=== PATIENT | male | born 1955 | race Caucasian/White ===

== ENCOUNTER 2019-03-20 22:26 | Inpatient (IN) | payer MEDICAID ==
[~2019-03-20] VITALS: Ht 165.1 cm; Wt 62.6 kg
[2019-03-20 22:26] VITALS: BP 75/48
--- NOTE | 2019-03-20 22:26 | NUR ---
PT MARIA D ALS TO ER BED 11
--- NOTE | 2019-03-20 22:35 | NUR ---
Kayden mohamud in [place] - 03/21/19 at 0401 by MEDJJ STRAIGHT CATHETER PLACED, 0 URINE RETURNED, AND DOCTOR MARILIN NOTIFIED.
[2019-03-20] MEDS ORDERED: NACL 0.9% 1,000 ML IV SCH (22:36)
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
--- NOTE | 2019-03-20 23:30 | NUR ---
MULTIPLE ATTEMPTS MADE TO PUT IV INTO PATIENT. PATIENT STATES HE DOES NOT WANT TO BE POKED BY NEEDLES ANYMORE AND TO STOP.
--- NOTE | 2019-03-20 23:35 | NUR ---
STRAIGHT CATHETER PLACED, 0 URINE RETURNED, AND DOCTOR MARILIN NOTIFIED. TAPED IN PLACE TO AWAIT URINE RETURN
--- NOTE | 2019-03-20 23:40 | NUR ---
CHARGE NURSE NOTIFIED OF DIFFICULT STICK, EJ ATTEMPT BY CHARGE NURSE AND RESOURCE NURSE AND WAS UNSUCCESSFUL. DOCTOR GASTON MADE AWARE
--- NOTE | 2019-03-20 23:47 | NUR ---
XRAY AT BEDSIDE
[2019-03-21] VITALS (10 sets, daily range): BP systolic 91–138; BP diastolic 51–69
--- NOTE | 2019-03-21 | NUR ---
PATIENT ARTERIAL BLOOD DRAWN BY DOCTOR GASTON AT FEMORAL SITE. PRESSURE APPLIED TO SITE AND BLEEDING CONTROLLED WITH BANDAID ON TOP.
--- NOTE | 2019-03-21 00:05 | NUR ---
CATHETER FELL OUT OF PATIENT WITH NO URINE RETURN, DR GASTON MADE AWARE AND STATED THAT NO CATHETER PLACEMENT WAS NECESSARY
--- NOTE | 2019-03-21 00:10 | NUR ---
PATIENT DRANK 480ML OF WATER
--- NOTE | 2019-03-21 00:17 | NUR ---
PT WOUND CLEANED FROM ARTERIAL BLOOD DRAW, PRESSURE APPLYED, BANDAID DRESSING APPLYED ON LEFT GROIN
--- NOTE | 2019-03-21 00:30 | NUR ---
NOTIFIED BY LAB TO REDRAW PURPLE AND GREEN DOCTOR MARILIN COHEN AWARE Addendum: 03/21/19 at 0358 by [email or web address] VALLE, NOT GREEN.
--- NOTE | 2019-03-21 00:35 | NUR ---
BED MCKEE PROVIDED FOR BOWEL MOVEMENT. LOOSE, BLACK COFFEE GROUND STOOL COLLECTED AND APPLIED TO HEMOCULT SLIDE. SENT TO LAB FOR PROCESSING.
--- NOTE | 2019-03-21 00:38 | NUR ---
PATIENT DRANK 720 ML OF WATER
--- NOTE | 2019-03-21 00:45 | NUR ---
PATIENT THREW UP AT BEDSIDE
[2019-03-21 00:50] LABS: ALBUMIN 2.9 g/dL (3.4-5.0); CARBON DIOXIDE 17.9 mmol/L (21-32); CREATININE 1.6 mg/dL (0.7-1.3); TOTAL BILIRUBIN 0.4 mg/dL (0.0-1.0)
[2019-03-21 01:00] LABS: POTASSIUM 2.9 mmol/L (3.5-5.1)
[2019-03-21] MEDS ORDERED: ONDANSETRON 4 MG TAB PO ONE (01:15)
[2019-03-21] MEDS ORDERED: POTASSIUM CHLORIDE 10 MEQ TABER PO ONE (01:15)
--- NOTE | 2019-03-21 01:15 | NUR ---
PT TAKEN TO CT SCAN VIA [facility]
--- NOTE | 2019-03-21 01:30 | NUR ---
PATIENT RETURNED FROM XRAY, PATIENT WAS CLEANED AND NEW GOWN PLACED. PATIENT AOX3 TO NAME, , LOCATION. PATIENT IS ALERT AND AWAKE, PATIENT BREATHING EVEN AND UNLABORED, SKIN WARM AND DRY. WILL COTINUE TO MONITOR.
--- NOTE | 2019-03-21 01:55 | NUR ---
BED MCKEE PROVIDED FOR BOWEL MOVEMENT.
--- NOTE | 2019-03-21 02:25 | NUR ---
DOCTOR GASTON AT BEDSIDE PERFORMING CENTRAL LINE PLACEMENT VIA RIGHT SUBCLAVIAN.
--- NOTE | 2019-03-21 02:38 | NUR ---
PROCEDURE COMPLETED BY DOCTOR GASTON, PATIENT TOLERATED WELL.
[2019-03-21] MEDS ORDERED: ASPIRIN 81 MG TAB.CHEW PO ONE (02:55)
[2019-03-21] MEDS ORDERED: NACL 0.9% 1,000 ML IV ONE (03:15)
[2019-03-21] MEDS ORDERED: KETOROLAC 30 MG/ML VIAL IVP ONE (03:15)
[2019-03-21 03:18] LABS: HEMOGLOBIN 7.3 g/dL (12.0-18.0); LYMPHOCYTES # (AUTO) 0.7 K/uL (2.0-11.5)
[2019-03-21] MEDS ORDERED: ZOLPIDEM 5 MG TAB PO PRN (03:25)
[2019-03-21] MEDS ORDERED: ONDANSETRON 4 MG/2 ML VIAL IM/IVP PRN (03:25)
[2019-03-21] MEDS ORDERED: ACETAMINOPHEN 325 MG TAB PO PRN (03:25)
[2019-03-21] MEDS ORDERED: MORPHINE SULFATE 2 MG/ML SYR IVP PRN (03:25)
[2019-03-21] MEDS ORDERED: LORazepam 2 MG/ML VIAL IM/IVP PRN (03:25)
[2019-03-21] MEDS ORDERED: DOCUSATE SODIUM 100 MG GELCAP PO PRN (03:25)
--- NOTE | 2019-03-21 03:30 | NUR ---
ABEEB AND LEONARD LABS DRAWN BY RN VIA CENTRAL LINE AND SENT TO LAB
[2019-03-21 03:32] LABS: HEMATOCRIT 21.9 % (36-52); MEAN CORPUSCULAR HEMOGLOBIN 29 pg (27-31); MEAN CORPUSCULAR HGB CONC 34 g/dL (33-37); MEAN CORPUSCULAR VOLUME 85.6 fL (80-94); MONOCYTES # (AUTO) 1.3 K/uL (0.8-1.0); MONOCYTES % (AUTO) 7.5 % (1.7-9.3); NEUTROPHILS # (AUTO) 15.3 K/uL (1.8-7.7); PLATELET COUNT (AUTO) 365 K/uL (140-450); RED BLOOD CELL COUNT(AUTO) 2.56 MIL/uL (4.20-6.10); RED CELL DISTRIBUTION WIDTH 14.3 % (11.6-13.7); WHITE BLOOD COUNT (AUTO) 17.3 K/uL (4.8-10.8)
[2019-03-21 03:45] LABS: NEUTROPHILS % (AUTO) 88.5 % (42.2-75.2)
[2019-03-21] MEDS ORDERED: metroNIDAZOLE 500 MG/NS PREMIX 100 ML IV ONE (03:50)
[2019-03-21] MEDS ORDERED: NACL 0.9% 500 ML IV ONE (03:50)
[2019-03-21] MEDS ORDERED: PANTOPRAZOLE 40 MG INJ VIAL IVP ONE ×2 (03:50→04:10)
[2019-03-21] MEDS ORDERED: NACL 0.9% 1,000 ML IV SCH (04:00)
[2019-03-21] MEDS ORDERED: cefTRIAXone 1,000 MG VIAL ONE (04:19)
[2019-03-21] MEDS: DEXT 5% /NACL 0.9% 1,000 ML IV SCH ×2 (04:40→15:16)
[2019-03-21] MEDS ORDERED: KCL 20 MEQ/WATER INJ PREMIX 200 ML IV ONE (05:00)
[2019-03-21 06:19] LABS: ANION GAP 15.3 (8-16); CREATININE 1.5 mg/dL (0.7-1.3); POTASSIUM 3.3 mmol/L (3.5-5.1)
--- NOTE | 2019-03-21 06:38 | NUR ---
Consent signed per PATIENT agreeing to administration of blood. Blood has been type and crossmatched. Blood sent from blood bank. Information on unit of blood checked against patient wristband at bedside by two nurses. All information matches. Patient or responsible democrat informed of potential complications associated with blood transfusion. Informed of possible transfusion reaction symptoms. Aware of need to notify nurse at once of itching, shortness of breath, flushing, feeling of impending doom, or other symptoms not previously present. Vital signs taken within 5 minutes prior to initiation of transfusion. RN will remain with patient for first 15 minutes of transfusion at which time vital signs will be re-assessed.
--- NOTE | 2019-03-21 06:38 | NUR ---
Note undone in EDM - 03/21/19 at 0810 by NORRIS Consent signed per patient agreeing to administration of blood. Blood has been type and crossmatched. Blood sent from blood bank. Information on unit of blood checked against patient wristband at bedside by two nurses. All information matches. Patient or responsible alliance party informed of potential complications associated with blood transfusion. Informed of possible transfusion reaction symptoms. Aware of need to notify nurse at once of itching, shortness of breath, flushing, feeling of impending doom, or other symptoms not previously present. Vital signs taken within 5 minutes prior to initiation of transfusion. RN will remain with patient for first 15 minutes of transfusion at which time vital signs will be re-assessed.
[2019-03-21 06:42] LABS: LYMPHOCYTES # (AUTO) 0.7 K/uL (2.0-11.5); LYMPHOCYTES % (AUTO) 4.7 % (20.5-51.1); MEAN CORPUSCULAR HEMOGLOBIN 28 pg (27-31); MEAN CORPUSCULAR HGB CONC 34 g/dL (33-37); MEAN CORPUSCULAR VOLUME 84.7 fL (80-94); MONOCYTES # (AUTO) 0.9 K/uL (0.8-1.0); MONOCYTES % (AUTO) 6.7 % (1.7-9.3); NEUTROPHILS # (AUTO) 12.6 K/uL (1.8-7.7); NEUTROPHILS % (AUTO) 88.6 % (42.2-75.2); PLATELET COUNT (AUTO) 262 K/uL (140-450); RED BLOOD CELL COUNT(AUTO) 2.17 MIL/uL (4.20-6.10); RED CELL DISTRIBUTION WIDTH 14.4 % (11.6-13.7); WHITE BLOOD COUNT (AUTO) 14.2 K/uL (4.8-10.8)
[2019-03-21 06:47] LABS: MAGNESIUM 1.7 mg/dL (1.8-2.4)
[2019-03-21 06:48] LABS: CHOL/HDL RATIO 3.2 (1-4.5); PHOSPHORUS 3.3 mg/dL (2.5-4.9); THYROID STIMULATING HORMONE 1.27 uIU/mL (0.34-3.74)
[2019-03-21 06:51] LABS: HEMOGLOBIN 6.2 g/dL (12.0-18.0)
[2019-03-21 06:52] LABS: HEMATOCRIT 18.4 % (36-52)
--- NOTE | 2019-03-21 06:53 | NUR ---
PATIENT IS TOLERATING TRANSFUSION WELL, DENIES PAIN, ITCHING, OR ANY OTHER REACTIONS. VS STABLE, WILL CONTINUE TO MONITOR.
--- NOTE | 2019-03-21 07:17 | NUR ---
NGT PLACED IN RIGHT NARE WITHOUT DIFFICULTY. TOLERATED WELL. 10 ML AIR EMBOLUS AUSCULTATED TO URQ. COFFEE GROUND RESIDUAL NOTED TO TUBING. ALLOW TO FLOW VIA GRAVITY, PER ADMITTING MD.
--- NOTE | 2019-03-21 07:23 | NUR ---
PATIENT CONTINUES TO DO WELL AND IS NOT COMPLAINING OF ANY PAIN OR ANY OTHER ADVERSE REACTIONS. WILL CONTINUE TO MONITOR.
--- NOTE | 2019-03-21 07:25 | NUR ---
XRAY AT BEDSIDE FOR CONFIRMATION OF NGT PLACEMENT.
--- NOTE | 2019-03-21 07:30 | NUR ---
TRANSFER OF CARE GIVEN TO BRIGIDA DIAZ, BRIGIDA WILL CONTINUE TO MONITOR BLOOD.
--- NOTE | 2019-03-21 07:30 | NUR ---
RECEIVED REPORT FROM JOE ALEXANDER FOR CONTINUATION OF CARE. PT WILL BE TRANSFERED TO ICU 5
[2019-03-21 07:44] LABS: APPEARANCE,URINE HAZY (CLEAR); BILIRUBIN,URINE NEGATIVE (NEGATIVE); BLOOD, URINE 2+ (NEGATIVE); COLOR,URINE YELLOW (YELLOW); LEUKOCYTE ESTERASE ,URINE NEGATIVE (NEGATIVE); NITRITE, URINE NEGATIVE (NEGATIVE); UGLUCOSE NEGATIVE (NEGATIVE)
[2019-03-21 07:50] LABS: BARBITURATE, URINE NEG. ng/ml (NEG <=200); BENZODIAZEPINE, URINE NEG. ng/mL (NEG <=200); CANNABINOID, URINE NEG. ng/mL (NEG <=50); COCAINE, URINE NEG. ng/mL (NEG <=300); OPIATE, URINE NEG. ng/mL (NEG <=2000); PHENCYCLIDINE SCREEN,URINE NEG. ng/mL (NEG <=25)
[2019-03-21 07:55] LABS: WBC,URINE 0-5 /HPF (0-5)
[2019-03-21 07:56] LABS: URINE AMORPHOUS URATE 1+ /HPF (None Seen)
[2019-03-21] MEDS: ACETAMINOPHEN 325 MG TAB PO SCH ×3 (08:00→15:17)
[2019-03-21] MEDS: FUROSEMIDE 20 MG TAB PO SCH ×2 (08:00→12:00)
--- NOTE | 2019-03-21 08:43 | NUR ---
PATIENT IS HERE FROM ER VIA [facility], REPORT ENDORSED BY ACE VALLE RN, FOR CONTINUITY OF CARE. PATIENT IS LETHARGIC, AAOX 3. SKIN IS WARM, DRY, AFEBRILE, INTACT, MULTIPLE SCABS. HE HAS CENTRAL LINE TO R. SUBCLAVIAN, TLC, ASYMPTOMATIC AND PATENT. HE IS ON ROOM AIR, SR ON MONITOR, DENIES ANY PAIN. PATIENT HAS NGT TO R. NARES TO DRAINAGE. NO SIGNS OF DISTRESS NOTED. WILL CONTINUE TO MONITOR.
--- NOTE | 2019-03-21 08:48 | NUR ---
Patient will be admitted to care of . Admited to ICU. Will go to room 5. Belongings list completed. Report to JOE Chowdhury. A+ BLOOD TRANSFUSION STARTED AT 03/21/19 0638AM BY CATHERINE NUÑEZ, JOE & LYNDA LOVELACE RN. DOCUMENTATION ON BLOOD TRANSFUSION PAPERWORK. AT THE TIME OF TRANSFER TO ICU, VSS AT: T 98.3 P 93 BP 139/61 RR 18 O2 SAT 100% RA CALLED LAB TO CHECK IF 2ND LACTATE WAS DRAWN, PER TITI, SHE IS UNSURE AND WILL CHECK AND IF NOT SHE WILL GO TO ICU 5 TO DRAW LABS.
[2019-03-21] MEDS ORDERED: PANTOPRAZOLE 40 MG INJ VIAL IVP SCH (09:00)
[2019-03-21] MEDS: NICOTINE TRANSD SYS 14 MG/24 HR PATCH TD SCH (09:00)
--- NOTE | 2019-03-21 09:10 | NUR ---
PATIENT HAD 1 MODERATE LIQUID BM, PATIENT CLEANED AND REPOSITIONED, TOLERATED WELL.
--- NOTE | 2019-03-21 09:15 | NUR ---
PLACED NGT TO DRAINAGE BAG, PATIENT TOLERATED WELL.
--- NOTE | 2019-03-21 09:25 | NUR ---
BLOOD TRANSFUSION OF 1 UNIT OF PRBC IS COMPLETE, PATIENT TOLERATED WELL, NO SIGNS OF REACTION NOTED.
[2019-03-21] MEDS ORDERED: MIDAZOLAM 2 MG/2 ML VIAL ONE ×2 (10:42)
[2019-03-21] MEDS ORDERED: fentaNYL 0.05 MG/ML VIAL ONE (10:42)
--- NOTE | 2019-03-21 10:51 | NUR ---
SURGICAL TEAM AT BEDSIDE PREPARING FOR EGD.
--- NOTE | 2019-03-21 11:24 | NUR ---
DR. JUAREZ IS HERE TO DO EGD AT BEDSIDE, NO SIGNS OF DISTRESS NOTED.
--- NOTE | 2019-03-21 11:28 | NUR ---
PER DR. JUAREZ, ORDER FOR CLEAR LIQUID DIET AND PROTONIX DRIP 80 MG, 8ML/HR FOR 3 DAYS.
[2019-03-21] MEDS ORDERED: PANTOPRAZOLE 80 MG in NACL 0.9% 100 ML IV SCH ×2 (11:35→11:55)
[2019-03-21] MEDS ORDERED: MIDAZOLAM 2 MG/2 ML VIAL IVP ONE (11:45)
[2019-03-21] MEDS ORDERED: fentaNYL 0.05 MG/ML VIAL IVP ONE (11:45)
[2019-03-21] MEDS: metroNIDAZOLE 500 MG/NS PREMIX 100 ML IV SCH ×3 (12:43→21:00)
--- NOTE | 2019-03-21 13:05 | NUR ---
FOOD PRODUCTION ASSOCIATE AT BEDSIDE FOR ECHOCARDIOGRAM, NO SIGNS OF DISTRESS NOTED.
[2019-03-21] MEDS: PANTOPRAZOLE 80 MG in NACL 0.9% 100 ML IV SCH (13:35)
[2019-03-21] MEDS ORDERED: PROBIOTIC SCREEN 1 EA MISC MC PRN (15:10)
[2019-03-21] MEDS ORDERED: MAGNESIUM OXIDE 400 MG TAB PO SCH (17:00)
[2019-03-21] MEDS ORDERED: POTASSIUM CHLORIDE 10 MEQ TABER PO SCH (17:00)
[2019-03-21] MEDS: NACL 0.9% 1,000 ML IV SCH (17:11)
--- NOTE | 2019-03-21 17:18 | NUR ---
DR. CROCKETT IS HERE TO SEE AND EXAMINE PATIENT, UPDATED ON PATIENT'S CONDITION.
[2019-03-21 18:07] LABS: BASOPHILS % (AUTO) 0.1 % (0.0-2.0); EOSINOPHILS % (AUTO) 0.1 % (0.0-4.0); LYMPHOCYTES # (AUTO) 1.1 K/uL (2.0-11.5); LYMPHOCYTES % (AUTO) 10.2 % (20.5-51.1); MEAN CORPUSCULAR HEMOGLOBIN 29 pg (27-31); MEAN CORPUSCULAR HGB CONC 34 g/dL (33-37); MEAN CORPUSCULAR VOLUME 85.7 fL (80-94); MONOCYTES # (AUTO) 0.7 K/uL (0.8-1.0); MONOCYTES % (AUTO) 6.2 % (1.7-9.3); NEUTROPHILS # (AUTO) 8.9 K/uL (1.8-7.7); NEUTROPHILS % (AUTO) 83.4 % (42.2-75.2); PLATELET COUNT (AUTO) 247 K/uL (140-450); RED BLOOD CELL COUNT(AUTO) 2.31 MIL/uL (4.20-6.10); RED CELL DISTRIBUTION WIDTH 13.9 % (11.6-13.7); WHITE BLOOD COUNT (AUTO) 10.6 K/uL (4.8-10.8)
[2019-03-21 18:11] LABS: HEMATOCRIT 19.8 % (36-52); HEMOGLOBIN 6.8 g/dL (12.0-18.0)
[2019-03-22] VITALS (11 sets, daily range): BP systolic 92–124; BP diastolic 40–59
[2019-03-22] MEDS: PANTOPRAZOLE 80 MG in NACL 0.9% 100 ML IV SCH ×2 (01:03→09:43)
[2019-03-22] MEDS: NACL 0.9% 1,000 ML IV SCH ×4 (05:31→23:44)
[2019-03-22] MEDS: metroNIDAZOLE 500 MG/NS PREMIX 100 ML IV SCH ×2 (05:33→13:31)
[2019-03-22 05:46] LABS: BASOPHILS % (AUTO) 0.2 % (0.0-2.0); EOSINOPHILS % (AUTO) 0.4 % (0.0-4.0); HEMATOCRIT 22.4 % (36-52); HEMOGLOBIN 7.6 g/dL (12.0-18.0); LYMPHOCYTES # (AUTO) 1.5 K/uL (2.0-11.5); LYMPHOCYTES % (AUTO) 15.2 % (20.5-51.1); MEAN CORPUSCULAR HEMOGLOBIN 29 pg (27-31); MEAN CORPUSCULAR HGB CONC 34 g/dL (33-37); MEAN CORPUSCULAR VOLUME 85.8 fL (80-94); MONOCYTES # (AUTO) 0.7 K/uL (0.8-1.0); MONOCYTES % (AUTO) 7.1 % (1.7-9.3); NEUTROPHILS # (AUTO) 7.4 K/uL (1.8-7.7); NEUTROPHILS % (AUTO) 77.1 % (42.2-75.2); PLATELET COUNT (AUTO) 238 K/uL (140-450); RED BLOOD CELL COUNT(AUTO) 2.61 MIL/uL (4.20-6.10); RED CELL DISTRIBUTION WIDTH 14.5 % (11.6-13.7); WHITE BLOOD COUNT (AUTO) 9.6 K/uL (4.8-10.8)
[2019-03-22 05:57] LABS: MAGNESIUM 1.6 mg/dL (1.8-2.4); PHOSPHORUS 1.4 mg/dL (2.5-4.9)
[2019-03-22 06:09] LABS: ANION GAP 13.6 (8-16); CREATININE 0.8 mg/dL (0.7-1.3); POTASSIUM 3.6 mmol/L (3.5-5.1)
[2019-03-22] MEDS ORDERED: MAGNESIUM OXIDE 400 MG TAB PO SCH (07:00)
--- NOTE | 2019-03-22 07:25 | NUR ---
PATIENT TRANSFERED TO THE TELEMETARY FLOOR ROOM I05 B VIA WHEELCHAIR. REPORT JUST GIVEN TO HANG THE NURSE FOR CONTINUOUS EXPERT CARE
--- NOTE | 2019-03-22 07:26 | NUR ---
RECEIVED REPORT OF PT FROM ICU NURSE FOR CONTINUITY OF CARE. PT IS A0X4, DX OF GI BLEED, HTN. PT ASKED ABOUT BREAKFAST TIME AND WAS INFORMED OF THE TIME. SAFETY MEASURES IN PLACE.
[2019-03-22] MEDS ORDERED: ALBUTEROL SULFATE/IPRATROPIU 3 ML SOL IH PRN (08:00)
[2019-03-22] MEDS ORDERED: POTASSIUM PHOSPHATE 15 MM in NACL 0.9% 250 ML IV SCH (09:00)
[2019-03-22] MEDS: NICOTINE TRANSD SYS 14 MG/24 HR PATCH TD SCH (09:40)
[2019-03-22] MEDS: HYDROcodone/APAP 5/325 MG 1 TAB TAB PO PRN ×3 (09:52→21:06)
--- NOTE | 2019-03-22 09:53 | NUR ---
PT TOLERATED HIS MEDICATION WITHOUT SIGNS OF DISTRESS. PT WAS MEDICATED FOR PAIN OF 6/10 OF THE ABDOMEN. WILL REASSESS IN [address]OUR[address] SAFETY MEASURES IN PLACE. CALL LIGHT WITHIN REACH.
--- NOTE | 2019-03-22 13:40 | NUR ---
PT RECEIVED FLAGYL IV ANTIBIOTIC, EXPLAINED THE SIDE EFFECT, PT VERBALIZED UNDERSTANDING. SISTER AT BEDSIDE. CALL LIGHT WITHIN REACH.
[2019-03-22 13:54] LABS: BASOPHILS % (AUTO) 0.1 % (0.0-2.0); EOSINOPHILS % (AUTO) 0.3 % (0.0-4.0); HEMATOCRIT 23.5 % (36-52); LYMPHOCYTES # (AUTO) 1.5 K/uL (2.0-11.5); LYMPHOCYTES % (AUTO) 16.4 % (20.5-51.1); MEAN CORPUSCULAR HEMOGLOBIN 30 pg (27-31); MEAN CORPUSCULAR HGB CONC 34 g/dL (33-37); MEAN CORPUSCULAR VOLUME 87.2 fL (80-94); MONOCYTES # (AUTO) 0.5 K/uL (0.8-1.0); MONOCYTES % (AUTO) 6.1 % (1.7-9.3); NEUTROPHILS # (AUTO) 6.8 K/uL (1.8-7.7); NEUTROPHILS % (AUTO) 77.1 % (42.2-75.2); PLATELET COUNT (AUTO) 228 K/uL (140-450); RED CELL DISTRIBUTION WIDTH 14.2 % (11.6-13.7); WHITE BLOOD COUNT (AUTO) 8.9 K/uL (4.8-10.8)
--- NOTE | 2019-03-22 15:08 | NUR ---
PATIENT HAS BEEN SCREENED AND CATEGORIZED HIGH NUTRITION RISK. PATIENT WILL BE SEEN WITHIN 1-2 DAYS OF ADMISSION. 03/21/19 - 03/22/19 FLORIAN LÓPEZ MBA,RD
--- NOTE | 2019-03-22 16:54 | NUR ---
PT COMPLAINING OF STOMACH PAIN 09/22, WILL MEDICATE PT. PT IS STABLE, CALL LIGHT WITHIN REACH.
--- NOTE | 2019-03-22 18:25 | NUR ---
03/22/19 RD INITIAL ASSESSMENT COMPLETED PLEASE REFER TO NUTRITION ASSESSMENT UNDER CARE ACTIVITY FOR ESTIMATED NUTRITIONAL NEEDS. RD RECOMMENDATIONS: 1. RECOMMEND CONTINUE CLEAR LIQUID DIET. 2. ADVANCE DIET, TOLERATED AND MEDICALLY CLEARED TO FULL LIQUID THEN REGULAR DIET. 3. F/U 3-5 DAYS; MODERATE RISK FLORIAN LÓPEZ MBA, RD
--- NOTE | 2019-03-22 19:05 | NUR ---
GAVE REPORT TO NIGHT NURSE FOR CONTINUITY OF CARE. PT IS STABLE, CALL LIGHT WITHIN REACH.
--- NOTE | 2019-03-22 19:06 | NUR ---
Patient's Plan of Care was discussed and reviewed with ORTHODONTIC LABORATORY TECHNICIAN: CALL LIGHT IS WITHIN REACH. WILL CONTINUE TO MONITOR Addendum: 03/22/19 at 2150 by Chrystal Horn RN WRONG PATIENT.
--- NOTE | 2019-03-22 19:06 | NUR ---
RECEIVED BEDSIDE REPORT FROM DAY SHIFT NURSE. NO SOB OR ANY RESPIRATORY DISTRESS NOTED. CENTRAL LINE, 3LUMENS ON R SUBCLAVIAN. INTACT, PATENT, AND ASYMPTOMATIC. SKIN INTACT, WARM AND DRY TO TOUCH. BOARD UPDATED, POC REVIEWED AND PT VERBALIZED UNDERSTANDING. BED IN LOW POSITION, CALL LIGHT WITHIN REACH. Addendum: 03/22/19 at 2216 by Halima Walters RN PREVIOUS PROTONIX STILL RUNNING.
--- NOTE | 2019-03-22 20:25 | NUR ---
RECEIVED PATIENT ON ROOM AIR, SPO2 100%. PATIENT DENIES SOB. PRN HHN NOT INDICATED AT THIS TIME. PATIENT MADE AWARE OF MEDICATION FREQUENCY. NO ACUTE RESPIRATORY DISTRESS NOTED. WILL CONTINUE TO MONITOR.
--- NOTE | 2019-03-22 21:06 | NUR ---
PT C/O 09/22 ABD PAIN. GIVEN NORCO MD ORDERED. PT TOLERATED WELL.
[2019-03-22 22:19] LABS: BASOPHILS # (AUTO) 0.1 K/uL (0.00-0.22); BASOPHILS % (AUTO) 0.8 % (0.0-2.0); EOSINOPHILS # (AUTO) 0.1 K/uL (0-0.4); EOSINOPHILS % (AUTO) 0.7 % (0.0-4.0); HEMATOCRIT 21.5 % (36-52); HEMOGLOBIN 7.2 g/dL (12.0-18.0); LYMPHOCYTES # (AUTO) 1.5 K/uL (2.0-11.5); LYMPHOCYTES % (AUTO) 18.9 % (20.5-51.1); MEAN CORPUSCULAR HEMOGLOBIN 29 pg (27-31); MEAN CORPUSCULAR HGB CONC 34 g/dL (33-37); MEAN CORPUSCULAR VOLUME 86.9 fL (80-94); MONOCYTES # (AUTO) 0.6 K/uL (0.8-1.0); MONOCYTES % (AUTO) 7.8 % (1.7-9.3); NEUTROPHILS # (AUTO) 5.8 K/uL (1.8-7.7); NEUTROPHILS % (AUTO) 71.8 % (42.2-75.2); PLATELET COUNT (AUTO) 251 K/uL (140-450); RED BLOOD CELL COUNT(AUTO) 2.47 MIL/uL (4.20-6.10); RED CELL DISTRIBUTION WIDTH 14.3 % (11.6-13.7); WHITE BLOOD COUNT (AUTO) 8.1 K/uL (4.8-10.8)
--- NOTE | 2019-03-22 22:45 | NUR ---
PT C/O HUNGRY AND ASKING SOLID FOOD. RN EDUCATED PT ON CLEAR LIQUID DIET AND PROVIDED JELLO. PT VERBALIZED UNDERSTANDING.
[2019-03-23] VITALS: BP 119/53
--- NOTE | 2019-03-23 | NUR ---
VS CHECKED, WITHIN PT'S BASELINE. WILL CONTINUE TO MONITOR.
[2019-03-23] MEDS: PANTOPRAZOLE 80 MG in NACL 0.9% 100 ML IV SCH ×2 (03:07→09:19)
--- NOTE | 2019-03-23 03:07 | NUR ---
GIVEN PROTONIX DRIP MD ORDERED. PT TOLERATED WELL.
[2019-03-23 04:00] VITALS: BP 106/41
--- NOTE | 2019-03-23 05:15 | NUR ---
PT HAD BM. CHANGED PT. Addendum: 03/23/19 at 0640 by Halima Walters RN BLACK TARRY STOOL NOTED.
--- NOTE | 2019-03-23 06:40 | NUR ---
PT SLEEPING IN BED. NO ACUTE DISTRESS NOTED.
[2019-03-23] MEDS: NACL 0.9% 1,000 ML IV SCH ×3 (07:00→20:50)
--- NOTE | 2019-03-23 07:10 | NUR ---
RECEIVED REPORT FORM NIGHT NURSE, PT AWAKE IN BED. IV RUNNING NS AT 150ML/H, PROTONIX 8ML/H, PT HAS DX OF GI BLEED, HYPOKALEMIA, NICOTINE DEPENDENT. PT IS STABLE, NO SIGNS OF DISTRESS. SAFETY MEASURES IN PLACE, CALL LIGHT WITHIN REACH.
[2019-03-23 07:16] LABS: BASOPHILS % (AUTO) 0.2 % (0.0-2.0); EOSINOPHILS # (AUTO) 0.1 K/uL (0-0.4); LYMPHOCYTES # (AUTO) 1.7 K/uL (2.0-11.5); LYMPHOCYTES % (AUTO) 18.6 % (20.5-51.1); MEAN CORPUSCULAR HEMOGLOBIN 30 pg (27-31); MEAN CORPUSCULAR HGB CONC 34 g/dL (33-37); MEAN CORPUSCULAR VOLUME 87.1 fL (80-94); MONOCYTES # (AUTO) 0.6 K/uL (0.8-1.0); MONOCYTES % (AUTO) 6.8 % (1.7-9.3); NEUTROPHILS # (AUTO) 6.7 K/uL (1.8-7.7); NEUTROPHILS % (AUTO) 73.4 % (42.2-75.2); PLATELET COUNT (AUTO) 262 K/uL (140-450); RED BLOOD CELL COUNT(AUTO) 2.22 MIL/uL (4.20-6.10); RED CELL DISTRIBUTION WIDTH 14.4 % (11.6-13.7); WHITE BLOOD COUNT (AUTO) 9.1 K/uL (4.8-10.8)
[2019-03-23 07:18] LABS: CARBON DIOXIDE 18.9 mmol/L (21-32); CREATININE 0.8 mg/dL (0.7-1.3)
[2019-03-23 07:20] LABS: MAGNESIUM 1.4 mg/dL (1.8-2.4); PHOSPHORUS 1.5 mg/dL (2.5-4.9)
[2019-03-23 07:47] LABS: POTASSIUM 2.9 mmol/L (3.5-5.1)
--- NOTE | 2019-03-23 07:48 | NUR ---
LAB CALLED WITH CRITICAL VALUE FOR POTASSIUM 2.9, SPOKE WITH LEANNE, NOTIFIED DR. ESTRADA AT 0751, STATES SHE IS DOING ROUNDS AND WILL PUT IN ORDERS WHEN SHE GETS TO A COMPUTER. WILL CARRY OUT ORDERS ONCE RECEIVED.
[2019-03-23 08:00] VITALS: BP 122/59
[2019-03-23 08:15] LABS: HEMOGLOBIN 6.6 g/dL (12.0-18.0)
--- NOTE | 2019-03-23 08:15 | NUR ---
RECEIVED CALL FROM LAB WITH CRITICAL LAB VALUE OF HEMOGLOBIN 6.6, HCT 19.3. NOTIFIED DR. BOWEN 1419, WHO WILL PLACE ORDER FOR BLOOD TRANSFUSION. WILL CARRY OUT ORDER ONCE RECEIVED.
[2019-03-23 08:16] LABS: HEMATOCRIT 19.3 % (36-52)
--- NOTE | 2019-03-23 08:35 | NUR ---
REMOVED BLOOD FOR TYPE AND CROSS MATCH FOR LAB, PT'S HGB 6.6, HCT 19.3. REMOVED TWO VIAL FROM RIGHT SUBCLAVIAN. PT TOLERATED WELL. CALL LIGHT WITHIN REACH.
[2019-03-23] MEDS ORDERED: KCL 20 MEQ/WATER INJ PREMIX 200 ML IV SCH (09:00)
[2019-03-23] MEDS: NICOTINE TRANSD SYS 14 MG/24 HR PATCH TD SCH (09:00)
[2019-03-23] MEDS ORDERED: MAGNESIUM OXIDE 400 MG TAB PO SCH (09:30)
--- NOTE | 2019-03-23 09:30 | NUR ---
GAVE PT ORDERED AM MEDICATION, PT TOLERATED WELL. PT UPSET ABOUT CLEAR LIQUID DIET. EDUCATED ON REASON PT IS ON CLEAR LIQUID DIET. PT VERBALIZE UNDERSTANDING AND AGREES FOR NOW.
[2019-03-23 12:00] VITALS: BP 117/52
[2019-03-23] MEDS ORDERED: ACETAMINOPHEN 325 MG TAB PO SCH (12:00)
--- NOTE | 2019-03-23 12:20 | NUR ---
WENT TO PICK BLOOD FOR PT''S BLOOD TRANSFUSION, WAS INFORMED THE BLOOD WAS NOT READY. WILL RECEIVE A CALL WHEN THE BLOOD IS READY. Addendum: 03/23/19 at 1955 by Val Campos RN PROVIDED BLOOD BANK WITH CONSENT FOR BLOOD TRANSFUSION
[2019-03-23] MEDS ORDERED: POTASSIUM PHOSPHATE 15 MM in NACL 0.9% 250 ML IV SCH (13:00)
[2019-03-23] MEDS: metroNIDAZOLE 250 MG/NS PREMIX 50 ML IV SCH ×2 (13:41→20:50)
[2019-03-23] MEDS ORDERED: SUCRALFATE 1 GM TAB PO SCH (14:20)
--- NOTE | 2019-03-23 15:00 | NUR ---
OBTAINED PRE-TRANSFUSION VITAL SIGNS, WILL GO TO BLOOD BANK AND PREP PERSON BLOOD. PT IS STABLE, NO SIGNS OF DISTRESS, CALL LIGHT WITHIN REACH.
[2019-03-23 15:18] LABS: BASOPHILS % (AUTO) 0.2 % (0.0-2.0); EOSINOPHILS # (AUTO) 0.1 K/uL (0-0.4); EOSINOPHILS % (AUTO) 1.3 % (0.0-4.0); LYMPHOCYTES # (AUTO) 1.7 K/uL (2.0-11.5); LYMPHOCYTES % (AUTO) 19.3 % (20.5-51.1); MEAN CORPUSCULAR HEMOGLOBIN 30 pg (27-31); MEAN CORPUSCULAR HGB CONC 34 g/dL (33-37); MEAN CORPUSCULAR VOLUME 87.6 fL (80-94); MONOCYTES # (AUTO) 0.5 K/uL (0.8-1.0); NEUTROPHILS # (AUTO) 6.6 K/uL (1.8-7.7); NEUTROPHILS % (AUTO) 73.2 % (42.2-75.2); PLATELET COUNT (AUTO) 261 K/uL (140-450); RED BLOOD CELL COUNT(AUTO) 2.14 MIL/uL (4.20-6.10); RED CELL DISTRIBUTION WIDTH 14.4 % (11.6-13.7)
[2019-03-23 15:20] LABS: HEMATOCRIT 18.7 % (36-52); HEMOGLOBIN 6.3 g/dL (12.0-18.0)
--- NOTE | 2019-03-23 15:25 | NUR ---
STARTED BLOOD TRANSFUSION, HELD OTHER MEDICATIONS. PT IS TOLERATING BLOOD TRANSFUSION WELL, NO SIGNS OF DISTRESS. RESPIRATIONS ARE STABLE AND UNLABORED ON ROOM AIR.
[2019-03-23 15:36] LABS: ANION GAP 12.5 (8-16); CARBON DIOXIDE 22.7 mmol/L (21-32); CREATININE 0.7 mg/dL (0.7-1.3); POTASSIUM 3.2 mmol/L (3.5-5.1)
[2019-03-23 15:39] LABS: PROTHROMBIN TIME 12.1 secs (10.8-13.4)
[2019-03-23 16:00] VITALS: BP 133/47
--- NOTE | 2019-03-23 17:20 | NUR ---
GAVE PT HIS MEDICATION,PT TOLERATED WELL. PT IS STABLE, BLOOD TRANSFUSION STILL INFUSING.
[2019-03-23] MEDS: SUCRALFATE 1 GM TAB PO SCH ×2 (17:22→20:50)
--- NOTE | 2019-03-23 19:10 | NUR ---
BLOOD TRANSFUSION FINISHED. PT IS STABLE, NO SIGNS OF DISTRESS, RESPIRATION EVEN AND UNLABORED.
--- NOTE | 2019-03-23 19:11 | NUR ---
RECEIVED BEDSIDE REPORT FROM DAY SHIFT NURSE. NO SOB OR ANY RESPIRATORY DISTRESS NOTED. BLOOD TRANSFUSION DONE, CENTRAL LINE, 3LUMENS ON R SUBCLAVIAN. INTACT, PATENT, AND ASYMPTOMATIC. SKIN INTACT, WARM AND DRY TO TOUCH. BOARD UPDATED, POC REVIEWED AND PT VERBALIZED UNDERSTANDING. BED IN LOW POSITION, CALL LIGHT WITHIN REACH.
[2019-03-23 20:00] VITALS: BP 126/53
--- NOTE | 2019-03-23 20:40 | NUR ---
CALLED DR. CHAUHAN ABOUT 2ND UNIT OF BLOOD TRANSFUSION, ORDERED CBC BEFORE DECIDED.
--- NOTE | 2019-03-23 20:50 | NUR ---
GIVEN FLAGYL AND CARAFATE MD ORDERED. PT TOLERATED WELL.
[2019-03-23 21:37] LABS: HEMOGLOBIN 7.4 g/dL (12.0-18.0); LYMPHOCYTES # (AUTO) 1.7 K/uL (2.0-11.5); MONOCYTES # (AUTO) 0.7 K/uL (0.8-1.0); MONOCYTES % (AUTO) 6.8 % (1.7-9.3); NEUTROPHILS # (AUTO) 8.2 K/uL (1.8-7.7); NEUTROPHILS % (AUTO) 76.1 % (42.2-75.2); WHITE BLOOD COUNT (AUTO) 10.8 K/uL (4.8-10.8)
[2019-03-23 21:52] LABS: BASOPHILS % (AUTO) 0.1 % (0.0-2.0); EOSINOPHILS # (AUTO) 0.1 K/uL (0-0.4); EOSINOPHILS % (AUTO) 1.3 % (0.0-4.0); HEMATOCRIT 21.7 % (36-52); LYMPHOCYTES % (AUTO) 15.7 % (20.5-51.1); MEAN CORPUSCULAR HEMOGLOBIN 29 pg (27-31); MEAN CORPUSCULAR HGB CONC 34 g/dL (33-37); PLATELET COUNT (AUTO) 256 K/uL (140-450); RED BLOOD CELL COUNT(AUTO) 2.53 MIL/uL (4.20-6.10); RED CELL DISTRIBUTION WIDTH 14.5 % (11.6-13.7)
--- NOTE | 2019-03-23 22:10 | NUR ---
PT LYING ON BED, WATCHING TV. NO ACUTE DISTRESS NOTED.
--- NOTE | 2019-03-23 22:59 | NUR ---
CBC RESULT CAME OUT, HGB 7.4. REPORTED TO DR. CHAUHAN AND NO BLOOD UNIT ORDERED.
[2019-03-24] VITALS: BP 115/56
--- NOTE | 2019-03-24 | NUR ---
VS CHECKED, WITHIN PT'S BASELINE. WILL CONTINUE TO MONITOR.
[2019-03-24] MEDS ORDERED: MELATONIN 3 MG TAB PO PRN (00:25)
--- NOTE | 2019-03-24 00:56 | NUR ---
PT C/O SLEEPLESSNESS, GIVEN MELATONIN MD ORDERED. PT TOLERATED WELL.
--- NOTE | 2019-03-24 02:45 | NUR ---
PT LYING IN BED, NO ACUTE DISTRESS NOTED. CHICKEN BROTH PROVIDED PT REQUESTED. RECOMMENDED TO COOL IT DOWN.
[2019-03-24 04:00] VITALS: BP 121/55
[2019-03-24] MEDS: metroNIDAZOLE 250 MG/NS PREMIX 50 ML IV SCH ×3 (05:04→21:56)
--- NOTE | 2019-03-24 05:04 | NUR ---
GIVEN FLAGYL MD ORDERED. PT TOLERATED WELL.
[2019-03-24] MEDS: NACL 0.9% 1,000 ML IV SCH ×4 (05:05→22:24)
--- NOTE | 2019-03-24 06:07 | NUR ---
BS CHECKED, 221, ADMINISTERED INSULIN MD ORDERED. PT TOLERATED WELL.
--- NOTE | 2019-03-24 06:40 | NUR ---
PT LYING IN BED. NO ACUTE DISTRESS NOTED. PT IN STABLE CONDITION.
[2019-03-24 06:58] LABS: BASOPHILS % (AUTO) 0.3 % (0.0-2.0); EOSINOPHILS # (AUTO) 0.2 K/uL (0-0.4); EOSINOPHILS % (AUTO) 2.3 % (0.0-4.0); HEMOGLOBIN 7.2 g/dL (12.0-18.0); LYMPHOCYTES # (AUTO) 2.1 K/uL (2.0-11.5); LYMPHOCYTES % (AUTO) 21.3 % (20.5-51.1); MEAN CORPUSCULAR HEMOGLOBIN 30 pg (27-31); MEAN CORPUSCULAR HGB CONC 34 g/dL (33-37); MEAN CORPUSCULAR VOLUME 87.3 fL (80-94); MONOCYTES # (AUTO) 0.6 K/uL (0.8-1.0); MONOCYTES % (AUTO) 6.2 % (1.7-9.3); NEUTROPHILS # (AUTO) 6.8 K/uL (1.8-7.7); NEUTROPHILS % (AUTO) 69.9 % (42.2-75.2); PLATELET COUNT (AUTO) 255 K/uL (140-450); RED BLOOD CELL COUNT(AUTO) 2.41 MIL/uL (4.20-6.10); RED CELL DISTRIBUTION WIDTH 14.4 % (11.6-13.7); WHITE BLOOD COUNT (AUTO) 9.7 K/uL (4.8-10.8)
[2019-03-24 07:10] LABS: ANION GAP 13.2 (8-16); CARBON DIOXIDE 20.8 mmol/L (21-32); CREATININE 0.7 mg/dL (0.7-1.3)
--- NOTE | 2019-03-24 07:15 | NUR ---
RECEIVED BEDSIDE REPORT FROM DRY CLEANING MACHINE OPERATOR NURSE. PT IS AWAKE AND ALERT, NO S/S OF ACUTE DISTRESS OR SOB. PT IS ON ROOM AIR, SKIN IS INTACT. OV SITE R CHEST CENTRAL LINE TRIPLE LUMEN, INFUSING NS 150 ML/HR. CALL LIGHT IS WITHIN REACH. WILL CONTINUE TO MONITOR.
[2019-03-24 07:17] LABS: MAGNESIUM 1.4 mg/dL (1.8-2.4); PHOSPHORUS 2.5 mg/dL (2.5-4.9)
[2019-03-24 08:00] VITALS: BP 126/48
[2019-03-24] MEDS ORDERED: PANTOPRAZOLE 80 MG in NACL 0.9% 100 ML IV SCH (09:00)
[2019-03-24] MEDS: NICOTINE TRANSD SYS 14 MG/24 HR PATCH TD SCH (09:00)
--- NOTE | 2019-03-24 09:00 | NUR ---
PT IS AMBULATING AROUND THE UNIT.
[2019-03-24] MEDS ORDERED: MAG SULF 2000 MG/WATER PREMIX 50 ML IV SCH (09:30)
[2019-03-24] MEDS ORDERED: KCL 20 MEQ/WATER INJ PREMIX 200 ML IV SCH (09:30)
[2019-03-24] MEDS: SUCRALFATE 1 GM TAB PO SCH ×4 (09:36→21:57)
--- NOTE | 2019-03-24 09:40 | NUR ---
AM MEDS ADMINISTERED, PT TOLERATING WELL. NO S/S OF DISTRESS. Addendum: 03/24/19 at 1023 by Sridevi Earl RN PT REFUSED THE NICOTINE PATCH.
--- NOTE | 2019-03-24 10:48 | NUR ---
PT IS ASKING TO HAVE SOLID FOOD. I NOTIFIED DR MONSALVE, SHE WILL TALK TO DR MICHAEL. PT IS CURRENTLY ON A CLEAR LIQUID DIET.
[2019-03-24 12:00] VITALS: BP 144/46
--- NOTE | 2019-03-24 12:10 | NUR ---
PT PUT ON A CARDIAC DIET, NEW LUNCH TRAY ORDERED FOR THE PT.
[2019-03-24] MEDS ORDERED: PANTOPRAZOLE 40 MG TABEC PO SCH (12:20)
--- NOTE | 2019-03-24 14:24 | NUR ---
Speech Language Pathologist Travel Note: Basic Screen: Yes High Risk DC Screen [place]: BERNICE Ramirez Relationship: SISTER Pre-Admission Living Arrangements: Lives with Other Prior ADL Independent Current Home Health Name/Tel: N/A Current DME/02 Name/Tel: N/A Current Hospice Name/Tel: N/A Current Dialysis Name/Tel: N/A Healthcare Decision Maker: Patient Advance Directive No - REFUED Patient/Family Have Educational Needs No Information Taught: Advance Directive Person Taught: Patient Teaching Tools: Verbal Participation Level: Active Evaluation: Verbalizes Understanding Needs Additional Education: No Discipline: Case Mgt/Social Svcs Tentative Discharge Plan/Destination: No Needs Identified Will require assistance post discharge: No Referred to Management Information Systems Director: No Tentative Discharge Plan Summary: Patient is a 63 y/o male who was admitted for vomiting and fatigue. Patient has PMHX of heroine abuse and nicotine dependence. Patient was homeless but now lives with his daughter, Julianna Bear in [place]. [place] was unable to provide address. SW verified demographics with patient. SW provided education on advanced directive but patient refused. Patient denies mental health history but states that he is a recovering heroine addict. Patient denies the use of other illicit drugs. Patient's tentative plan after discharge is to return home. Patient refused substance abuse resources. No further needs identified. Signature: SILVERIO Wall Date: Mar 24, 2019 Time: 14:22
[2019-03-24 15:24] LABS: BASOPHILS # (AUTO) 0.1 K/uL (0.00-0.22); BASOPHILS % (AUTO) 0.7 % (0.0-2.0); EOSINOPHILS # (AUTO) 0.3 K/uL (0-0.4); EOSINOPHILS % (AUTO) 2.9 % (0.0-4.0); HEMATOCRIT 21.3 % (36-52); HEMOGLOBIN 7.3 g/dL (12.0-18.0); LYMPHOCYTES # (AUTO) 1.2 K/uL (2.0-11.5); LYMPHOCYTES % (AUTO) 12.3 % (20.5-51.1); MEAN CORPUSCULAR HEMOGLOBIN 30 pg (27-31); MEAN CORPUSCULAR HGB CONC 34 g/dL (33-37); MEAN CORPUSCULAR VOLUME 87.6 fL (80-94); MONOCYTES # (AUTO) 0.7 K/uL (0.8-1.0); MONOCYTES % (AUTO) 6.8 % (1.7-9.3); NEUTROPHILS # (AUTO) 7.7 K/uL (1.8-7.7); NEUTROPHILS % (AUTO) 77.3 % (42.2-75.2); PLATELET COUNT (AUTO) 278 K/uL (140-450); RED BLOOD CELL COUNT(AUTO) 2.43 MIL/uL (4.20-6.10); RED CELL DISTRIBUTION WIDTH 14.4 % (11.6-13.7)
[2019-03-24 16:00] VITALS: BP 125/54
--- NOTE | 2019-03-24 17:52 | NUR ---
PT LYING COMFORTABLY IN BED WATCHING TV, NO S/S OF DISTRESS OR C/O PAIN ANYWHERE.
--- NOTE | 2019-03-24 19:20 | NUR ---
ENDORSED PT TO BIODIESEL PRODUCTION TECHNICIAN NURSE IN STABLE CONDITION.
--- NOTE | 2019-03-24 19:30 | NUR ---
RECEIVED FROM AM RN WITH PT. SITTING IN BED RT WITH VISITORS/FAMILY AROUND. ABLE TO VERBALIZE WELL WITH VISITORS AND ME. CARE PLANS FOR THE NIGHT DISCUSSED WITH HIM AND CALL LIGHT WITH IN REACH.
[2019-03-24 20:00] VITALS: BP 120/56
[2019-03-24 20:57] LABS: BASOPHILS % (AUTO) 0.3 % (0.0-2.0); EOSINOPHILS # (AUTO) 0.3 K/uL (0-0.4); EOSINOPHILS % (AUTO) 3.5 % (0.0-4.0); HEMATOCRIT 20.8 % (36-52); HEMOGLOBIN 7.2 g/dL (12.0-18.0); LYMPHOCYTES # (AUTO) 1.5 K/uL (2.0-11.5); LYMPHOCYTES % (AUTO) 15.5 % (20.5-51.1); MEAN CORPUSCULAR HEMOGLOBIN 30 pg (27-31); MEAN CORPUSCULAR HGB CONC 35 g/dL (33-37); MEAN CORPUSCULAR VOLUME 87.7 fL (80-94); MONOCYTES # (AUTO) 0.6 K/uL (0.8-1.0); MONOCYTES % (AUTO) 6.3 % (1.7-9.3); NEUTROPHILS # (AUTO) 7.3 K/uL (1.8-7.7); NEUTROPHILS % (AUTO) 74.4 % (42.2-75.2); PLATELET COUNT (AUTO) 276 K/uL (140-450); RED BLOOD CELL COUNT(AUTO) 2.37 MIL/uL (4.20-6.10); RED CELL DISTRIBUTION WIDTH 14.7 % (11.6-13.7); WHITE BLOOD COUNT (AUTO) 9.8 K/uL (4.8-10.8)
--- NOTE | 2019-03-24 21:00 | NUR ---
SEEN PT. WALKING AROUND THE UNIT AND ASKING FOR SNACKS. PROVIDED REQUESTED. ROM X 4. INDEPENDENT IN AMBULATING. WITH STEADY GAIT. TELEMETRY MONITORING. PICC LINE IN PLACE AND NO NOTED INFILTRATION OR C/O PAIN DONE.
[2019-03-24] MEDS: PANTOPRAZOLE 40 MG TABEC PO SCH (21:57)
--- NOTE | 2019-03-25 01:06 | NUR ---
SLEEPING AT THIS TIME.
[2019-03-25 02:16] VITALS: BP 120/54
[2019-03-25] MEDS ORDERED: metroNIDAZOLE 500 MG/NS PREMIX 100 ML IV ONE (04:32)
[2019-03-25] MEDS: NACL 0.9% 1,000 ML IV SCH ×3 (04:36→18:24)
[2019-03-25] MEDS: metroNIDAZOLE 250 MG/NS PREMIX 50 ML IV SCH ×3 (04:36→20:18)
--- NOTE | 2019-03-25 04:37 | NUR ---
FLAGYL 250 MG IVP ADMINISTERED WITNESSED BY CHARGE NURSE/KASSANDRA.
--- NOTE | 2019-03-25 06:14 | NUR ---
SLEEPING AT THIS TIME. NO COMPLAINTS OF ANY PAIN AT THIS TIME. NO SOB. INDEPENDENT. TELEMETRY MONITORING.
[2019-03-25 06:54] LABS: BASOPHILS % (AUTO) 0.4 % (0.0-2.0); EOSINOPHILS # (AUTO) 0.4 K/uL (0-0.4); EOSINOPHILS % (AUTO) 4.5 % (0.0-4.0); HEMATOCRIT 20.3 % (36-52); HEMOGLOBIN 7.1 g/dL (12.0-18.0); LYMPHOCYTES # (AUTO) 1.5 K/uL (2.0-11.5); LYMPHOCYTES % (AUTO) 16.2 % (20.5-51.1); MEAN CORPUSCULAR HEMOGLOBIN 31 pg (27-31); MEAN CORPUSCULAR HGB CONC 35 g/dL (33-37); MONOCYTES # (AUTO) 0.7 K/uL (0.8-1.0); MONOCYTES % (AUTO) 7.1 % (1.7-9.3); NEUTROPHILS # (AUTO) 6.8 K/uL (1.8-7.7); NEUTROPHILS % (AUTO) 71.8 % (42.2-75.2); PLATELET COUNT (AUTO) 286 K/uL (140-450); RED BLOOD CELL COUNT(AUTO) 2.31 MIL/uL (4.20-6.10); RED CELL DISTRIBUTION WIDTH 14.5 % (11.6-13.7); WHITE BLOOD COUNT (AUTO) 9.5 K/uL (4.8-10.8)
[2019-03-25 07:31] LABS: CARBON DIOXIDE 22.2 mmol/L (21-32); CREATININE 0.8 mg/dL (0.7-1.3); MAGNESIUM 1.6 mg/dL (1.8-2.4); PHOSPHORUS 2.9 mg/dL (2.5-4.9); POTASSIUM 3.2 mmol/L (3.5-5.1)
[2019-03-25 08:00] VITALS: BP 125/78
[2019-03-25] MEDS: NICOTINE TRANSD SYS 14 MG/24 HR PATCH TD SCH ×2 (09:00→09:24)
[2019-03-25] MEDS: PANTOPRAZOLE 40 MG TABEC PO SCH ×2 (09:23→20:19)
[2019-03-25] MEDS: SUCRALFATE 1 GM TAB PO SCH ×4 (09:23→20:19)
[2019-03-25] MEDS ORDERED: PANT40EC28 PO (11:25)
[2019-03-25 12:00] VITALS: BP 140/77
[2019-03-25] MEDS ORDERED: MAGNESIUM OXIDE 400 MG TAB PO SCH (12:00)
[2019-03-25] MEDS: KCL 20 MEQ/WATER INJ PREMIX 200 ML IV SCH ×2 (13:17→14:02)
--- NOTE | 2019-03-25 15:25 | NUR ---
KCL DOSE AT 50ML/HOUR INFUSING. FLAGYL DOSE NOT GIVEN PATIENT IS FOR DISCHAGE.
[2019-03-25 16:00] VITALS: BP 136/63
--- NOTE | 2019-03-25 16:47 | NUR ---
WITH ORDERS FOR DISCHARGE , IVF DISCONTINUED AND LKJEPT HL. FAMILY WILL COME TO PICK PATIENT UP
--- NOTE | 2019-03-25 18:49 | NUR ---
DAUGHTER WILL COME LATE SHE IS AT WORK Addendum: 03/25/19 at 1915 by Agency 04 JOE DIAZ IVF ON HL PATIENT WITH ORDERS FOR DISCHARGE. HBG 7.1 AND CHARGE NURSE CHRISTINE
--- NOTE | 2019-03-25 19:30 | NUR ---
RECEIVED BEDSIDE REPORT FROM DAY RN. PT IS AAOX4. ON ROOM AIR RESPIRATIONS ARE EQUAL AND UNLABORED. LUNG SOUNDS CLEAR. DENIES ANY PAIN AT THIS TIME. PT STATES HAD 2 BM TODAY ARE BECOMING MORE FORM AND WERE GREEN/BROWN. HAS CENTRAL LINE TRIPLE LUMEN ON R CHEST SL. DRESSING C/D/I. SKIN INTACT. PT IS AMBULATORY. D/C ORDER. PT AWARE JUST WAITING FOR SISTER TO PICK HIM UP. WILL PRINT AND REVIEW D/C INSTRUCTION. ALL NEEDS MET AT HIS TIME. CALL LIGHT IS WITHIN REACH.
--- NOTE | 2019-03-25 20:19 | NUR ---
HIREN MEDICATIONS GIVEN. EDUCATED PT ON S/E. HELD FLAGYL ORDER TO SL. PENDING DOCUMENT PREPARATION SPECIALIST. ALL NEEDS MET AT THIS TIME. WILL CONTINUE TO MONITOR
[2019-03-25 20:45] VITALS: BP 133/59
--- NOTE | 2019-03-25 21:15 | NUR ---
D/C INSTRUCTION GIVEN TO PT. REVIEWED NEW PRESCRIPTION PT VERBALIZED UNDERSTANDING. AWARE NEEDS TO MAKE F/U APPOINTMENT WITH PCP. CENTRAL LINE REMOVED, 3 SUTURES AND CATH IS INTACT. MINIMAL BLEEDING APPLIED PRESSURE FOR 5 MIN UNTIL BLEEDING STOPPED. PATIENT SIGN ALL D/C PAPERS. CALLED SECURITY TO OBTAIN A CHANGE OF CLOTHES FOR PT. ALL NEEDS MET AT THIS TIME.
--- NOTE | 2019-03-25 21:29 | NUR ---
PATIENT IS RESTING IN BED. CHANGED AND READY TO GO. PT SPOKE WITH HIS SISTER SHE IS ON HER WAY. CALL LIGHT IS WITHIN REACH. WILL CONTINUE TO MONITOR.
--- NOTE | 2019-03-25 21:45 | NUR ---
PT STATES DAUGHTER NOR SISTER CAN PICK HIM UP. REQUESTING TAXI. CALLED [facility] AT [phone]. SPOKE WITH MARY Bhakta#[id number] ACC #[id number]. PT GOING TO SISTER'S HOME: [address] [place] [address] [place]. [phone]. PER MARY TAXI WILL ARRIVE IN APPROX 45MIN. PT IS READY. HAS ALL BELONGINGS.
--- NOTE | 2019-03-25 22:20 | NUR ---
VSS 133/59 HR 87 96% RA RR 17 98.3 DENIES PAIN. ARM BANDS REMOVED. PT WITH D/C PAPERS AND ALL BELONGING. TRANSPORTATION ASSOCIATE WALKED PT TO FRONT LOBBY PT WITH STEADY GAIT IN STABLE CONDITION. WHERE CAB IS WAITING WITH SISTER'S ADDRESSED.
== END 2019-03-25 22:20 | disposition home or self-care (01) | DRG 720 ==
LOC: EDBD 22:26 → MED 22:26 → MIC 03-21 03:23 → MTU 03-22 06:50
PROVIDERS: ADMIT Family Medicine; ATTEND Family Medicine
PROC: 02HV33Z Insertion of Infusion Device into Superior Vena Cava, Percutaneous Approach (ICD-10-PCS; 2019-03-21)
PROC: 30233N1 Transfusion of Nonautologous Red Blood Cells into Peripheral Vein, Percutaneous Approach (ICD-10-PCS; 2019-03-21)
PROC: 0DB68ZX Excision of Stomach, Via Natural or Artificial Opening Endoscopic, Diagnostic (ICD-10-PCS; principal; 2019-03-21 10:30)
DX: A41.9 Sepsis, unspecified organism (principal); I21.A1 Myocardial infarction type 2; E43 Unspecified severe protein-calorie malnutrition; J96.00 Acute respiratory failure, unspecified whether with hypoxia or hypercapnia; R65.21 Severe sepsis with septic shock; N17.0 Acute kidney failure with tubular necrosis; E86.0 Dehydration; G92 Toxic encephalopathy; T40.1X1A Poisoning by heroin, accidental (unintentional), initial encounter; K52.9 Noninfective gastroenteritis and colitis, unspecified; F17.200 Nicotine dependence, unspecified, uncomplicated; J44.9 Chronic obstructive pulmonary disease, unspecified; K20.9 Esophagitis, unspecified; K25.4 Chronic or unspecified gastric ulcer with hemorrhage; K26.4 Chronic or unspecified duodenal ulcer with hemorrhage; K29.80 Duodenitis without bleeding; E87.6 Hypokalemia; D64.9 Anemia, unspecified; F11.10 Opioid abuse, uncomplicated; E87.1 Hypo-osmolality and hyponatremia; E83.39 Other disorders of phosphorus metabolism; E83.42 Hypomagnesemia; Z59.0 Homelessness; Z91.19 Patient's noncompliance with other medical treatment and regimen; Z80.9 Family history of malignant neoplasm, unspecified; Y92.89 Other specified places as the place of occurrence of the external cause; Z68.23 Body mass index [BMI] 23.0-23.9, adult
CPT/HCPCS: 36415; 36556; 71045; 71250; 80048; 80053; 80305; 81001; 82140; 82150; 82272; 83036; 83605; 83690; 83735; 83880; 84100; 84134; 84436; 84443; 84484; 85025; 85610; 85730; 86677; 86702; 86886; 86900; 86901; 86920; 87040; 87081; 87086; 87186; 93005; 94640; 96361; 96365; 96367; 96375; 99291; C9113; G0482; J0696; J1885; J2250; J3010; J3475; J3480; J3490; J7030; J7060; J7620; P9016; Q0092; Q0162

== ENCOUNTER 2023-10-30 19:00 | Emergency (ER) | payer MEDICAID, OTHER ==
[~2023-10-30] VITALS: Ht 165.1 cm; Wt 61.2 kg
[~2023-10-30 19:00] MED LIST: PANT40EC56 PO
[2023-10-30 19:13] VITALS: BP 135/82; PULSE 79; RESP 16; TEMP 98.8; O2SAT 97
[2023-10-30] MEDS ORDERED: CEPH-588 PO (21:01)
[2023-10-30] MEDS ORDERED: SULF-59 PO (21:01)
== END 2023-10-30 21:10 | disposition home or self-care (01) ==
LOC: MED 19:00
DX: L02.413 Cutaneous abscess of right upper limb (principal); F11.10 Opioid abuse, uncomplicated; Z79.2 Long term (current) use of antibiotics; Z79.899 Other long term (current) drug therapy
CPT/HCPCS: 99284